=== PATIENT | male | born 1975 | race African-American/Black ===

== ENCOUNTER 2016-08-01 18:58 | Emergency (ER) | payer SELFPAY ==
[~2016-08-01] VITALS: Ht 175.3 cm; Wt 77.3 kg
[~2016-08-01 18:58] MED LIST: NO MEDS
[2016-08-01] MEDS ORDERED: IBUPROFEN 800 MG TABLET PO ONE (19:15)
[2016-08-01 20:43] VITALS: BP 122/78
== END 2016-08-01 20:47 | disposition home or self-care (01) ==
LOC: EMS 19:01
DX: S43.101A Unspecified dislocation of right acromioclavicular joint, initial encounter (principal); F17.210 Nicotine dependence, cigarettes, uncomplicated; V00.131A Fall from skateboard, initial encounter; Y93.89 Activity, other specified; Y92.89 Other specified places as the place of occurrence of the external cause; Y99.8 Other external cause status
CPT/HCPCS: 29105; 99284

== ENCOUNTER 2016-09-19 11:30 | Inpatient (IN) | payer MEDICAID ==
[~2016-09-19] VITALS: Ht 180.3 cm; Wt 84.4 kg
[2016-09-19] MEDS ORDERED: SODIUM CHLORIDE 0.9% 1,000 ML IV ONE ×2 (12:15→13:15)
[2016-09-19] MEDS ORDERED: MORPHINE SULFATE 4 MG/ML SYRINGE IVP ONE (12:15)
[2016-09-19] MEDS ORDERED: ONDANSETRON HCL 4 MG/2 ML VIAL IVP ONE (12:15)
[2016-09-19] MEDS ORDERED: ACETAMINOPHEN 500 MG TABLET PO ONE (12:15)
[2016-09-19 12:27] LABS: BASOPHILS % (AUTO) 0.2 % (0.0-2.0); EOSINOPHILS % (AUTO) 0 % (1.0-6.0); HEMATOCRIT 43.8 % (41-53); HEMOGLOBIN 14.9 g/dL (13.5-17.5); LYMPHOCYTES # (AUTO) 0.6 K/uL (1.0-4.8); LYMPHOCYTES % (AUTO) 3.4 % (22.0-44.0); MEAN CORPUSCULAR HEMOGLOBIN 30.2 pg (26.0-34.0); MEAN CORPUSCULAR HGB CONC 33.9 G/dL (31.0-37.0); MEAN CORPUSCULAR VOLUME 89 fL (80-100); MONOCYTES # (AUTO) 0.9 K/uL (0.1-1.0); MONOCYTES % (AUTO) 5.2 % (2.0-9.0); NEUTROPHILS # (AUTO) 15.4 K/uL (1.8-7.7); PLATELET COUNT (AUTO) 274 K/uL (150-450); RED BLOOD CELL COUNT(AUTO) 4.91 MIL/uL (4.50-5.90); RED CELL DISTRIBUTION WIDTH 14.1 % (11.5-14.5); WHITE BLOOD COUNT (AUTO) 16.9 K/uL (4.5-11.0)
[2016-09-19 12:30] LABS: NEUTROPHILS % (AUTO) 91.2 % (40.0-70.0)
[2016-09-19 12:38] LABS: RBC MORPHOLOGY COMMENT NORMAL RBC MORPH
[2016-09-19 12:59] LABS: ANION GAP 11 mmol/L (8-16); CALCIUM, TOTAL 9.8 mg/dL (8.8-10.5); CARBON DIOXIDE 28 mmol/L (22-29); CHLORIDE 96 mmol/L (98-107); CREATININE 1.32 mg/dL (0.60-1.30); GLOMERULAR FILTR. RATE CALC > 60 mL/min (>60); SODIUM SERUM 135 mmol/L (136-145); UREA NITROGEN, BLOOD 8 mg/dL (7-18)
[2016-09-19 13:04] LABS: ALANINE AMINOTRANSFERASE 219 U/L (12-78); ALBUMIN 3.4 g/dL (3.4-5.0); ASPARTATE AMINOTRANSFERASE 191 U/L (15-37); BILIRUBIN,TOTAL 1.8 mg/dL (0.1-1.0); TOTAL PROTEIN, SERUM 8.4 g/dL (6.4-8.2)
[2016-09-19] MEDS ORDERED: VANCOMYCIN HCL 1.5 GM in DEXTROSE 5%-WATER 250 ML IV ONE ×2 (13:16→22:00)
[2016-09-19] MEDS ORDERED: SODIUM CHLORIDE 0.9% 100 ML ONE (13:19)
[2016-09-19] MEDS ORDERED: IOVERSOL 350 MG/ML 100 ML VIAL ONE (13:19)
[2016-09-19] MEDS ORDERED: KETOROLAC TROMETHAMINE 30 MG/ML VIAL IVP ONE (14:15)
[2016-09-19] MEDS ORDERED: LIDOCAINE HCL 1% 10 ML VIAL INJ ONE (14:30)
[2016-09-19] MEDS ORDERED: HYDROmorphone 2 MG/ML SYRINGE IVP ONE (14:30)
[2016-09-19] MEDS ORDERED: 0.9% SODIUM CHLORIDE 10 ML SYRINGE IVP PRN (14:45)
[2016-09-19] MEDS ORDERED: ACETAMINOPHEN 325 MG TABLET PO PRN (14:45)
[2016-09-19] MEDS ORDERED: ONDANSETRON HCL 4 MG/2 ML VIAL IVP PRN (14:45)
[2016-09-19 15:36] VITALS: BP 123/68
[2016-09-19] MEDS ORDERED: SODIUM CHLORIDE 0.9% 250 ML IV ONE (15:40)
[2016-09-19] MEDS: PIPERACILLIN/TAZO 3.375 GM/D5W 50 ML IV SCH (16:49)
[2016-09-19 18:34] VITALS: BP 123/68
[2016-09-19 20:02] VITALS: BP 111/67
[2016-09-19 23:48] VITALS: BP 125/74
[2016-09-20] MEDS: PIPERACILLIN/TAZO 3.375 GM/D5W 50 ML IV SCH (00:29)
[2016-09-20 04:45] VITALS: BP 138/78
[2016-09-20] MEDS ORDERED: ACETAMINOPHEN 325 MG TABLET PO PRN ×2 (05:00→14:45)
[2016-09-20 07:15] VITALS: BP 117/68
[2016-09-20] MEDS ORDERED: PIPERACILLIN/TAZO 3.375 GM/D5W 50 ML IV ONE (08:00)
[2016-09-20 11:50] VITALS: BP 109/64
[2016-09-20] MEDS ORDERED: ONDANSETRON HCL 4 MG/2 ML VIAL IVP PRN (14:45)
[2016-09-20] MEDS ORDERED: MAGNESIUM HYDROXIDE SUSPENSION 30 ML UDCUP PO PRN (14:45)
[2016-09-20] MEDS ORDERED: ZOLPIDEM TARTRATE 5 MG TABLET PO PRN (14:45)
[2016-09-20] MEDS ORDERED: MORPHINE SULFATE 2 MG/ML SYRINGE IVP PRN (14:45)
[2016-09-20] MEDS ORDERED: HYDROCODONE/ACETAMINOPHEN 5-325 MG TABLET PO PRN (14:45)
[2016-09-20] MEDS ORDERED: BISACODYL 10 MG RECTAL RECTAL SUPPOSITORY PR PRN (14:45)
[2016-09-20] MEDS ORDERED: ALBUTEROL SULFATE 2.5 MG/0.5 ML NEB SOLUTION NEB PRN (14:45)
[2016-09-20] MEDS ORDERED: IPRATROPIUM BROMIDE 0.5 MG/2.5 ML NEB SOLUTION NEB PRN (14:45)
[2016-09-20 15:16] VITALS: BP 111/71
[2016-09-20] MEDS: HEPARIN SODIUM,PORCINE 5,000 UNITS/ML VIAL SQ SCH ×2 (15:36→23:33)
[2016-09-20 15:46] LABS: HEMATOCRIT 39.9 % (41-53); HEMOGLOBIN 13.2 g/dL (13.5-17.5); MEAN CORPUSCULAR HEMOGLOBIN 29.8 pg (26.0-34.0); MEAN CORPUSCULAR HGB CONC 33.1 G/dL (31.0-37.0); MEAN CORPUSCULAR VOLUME 90 fL (80-100); PLATELET COUNT (AUTO) 265 K/uL (150-450); RED BLOOD CELL COUNT(AUTO) 4.44 MIL/uL (4.50-5.90); RED CELL DISTRIBUTION WIDTH 14.2 % (11.5-14.5); WHITE BLOOD COUNT (AUTO) 16.3 K/uL (4.5-11.0)
[2016-09-20] MEDS ORDERED: VANCOMYCIN HCL 1.5 GM in DEXTROSE 5%-WATER 250 ML IV ONE (16:00)
[2016-09-20 16:15] LABS: BAND NEUTROPHILS % (MANUAL) 23 % (1-5); LYMPHOCYTES % (MANUAL) 5 % (22-44); TOTAL CELLS COUNTED 100
[2016-09-20 17:07] LABS: ANION GAP 7 mmol/L (8-16); CARBON DIOXIDE 30 mmol/L (22-29); CHLORIDE 102 mmol/L (98-107); CREATININE 1.28 mg/dL (0.60-1.30); GLOMERULAR FILTR. RATE CALC > 60 mL/min (>60); SODIUM SERUM 139 mmol/L (136-145); UREA NITROGEN, BLOOD 8 mg/dL (7-18)
[2016-09-20 17:13] LABS: ALANINE AMINOTRANSFERASE 111 U/L (12-78); ALBUMIN 2.7 g/dL (3.4-5.0); ASPARTATE AMINOTRANSFERASE 32 U/L (15-37); TOTAL PROTEIN, SERUM 7.4 g/dL (6.4-8.2)
[2016-09-20 19:26] VITALS: BP 129/77
[2016-09-20] MEDS: DOCUSATE SODIUM 100 MG CAPSULE PO SCH (20:19)
[2016-09-20 23:37] VITALS: BP 110/72
[2016-09-21 04:48] VITALS: BP 115/79
[2016-09-21 06:15] LABS: BASOPHILS % (AUTO) 0.1 % (0.0-2.0); EOSINOPHILS % (AUTO) 0.5 % (1.0-6.0); HEMOGLOBIN 13.1 g/dL (13.5-17.5); LYMPHOCYTES # (AUTO) 1.2 K/uL (1.0-4.8); LYMPHOCYTES % (AUTO) 7.8 % (22.0-44.0); MEAN CORPUSCULAR HEMOGLOBIN 30.1 pg (26.0-34.0); MEAN CORPUSCULAR HGB CONC 33.5 G/dL (31.0-37.0); MEAN CORPUSCULAR VOLUME 90 fL (80-100); MONOCYTES % (AUTO) 6.8 % (2.0-9.0); NEUTROPHILS # (AUTO) 12.7 K/uL (1.8-7.7); NEUTROPHILS % (AUTO) 84.8 % (40.0-70.0); PLATELET COUNT (AUTO) 285 K/uL (150-450); RED BLOOD CELL COUNT(AUTO) 4.34 MIL/uL (4.50-5.90); RED CELL DISTRIBUTION WIDTH 14.2 % (11.5-14.5); WHITE BLOOD COUNT (AUTO) 14.9 K/uL (4.5-11.0)
[2016-09-21 06:37] LABS: ALANINE AMINOTRANSFERASE 94 U/L (12-78); ALBUMIN 2.5 g/dL (3.4-5.0); ANION GAP 9 mmol/L (8-16); BILIRUBIN,TOTAL 0.7 mg/dL (0.1-1.0); CALCIUM, TOTAL 9.2 mg/dL (8.8-10.5); CARBON DIOXIDE 26 mmol/L (22-29); CHLORIDE 102 mmol/L (98-107); CREATININE 1.17 mg/dL (0.60-1.30); GLOMERULAR FILTR. RATE CALC > 60 mL/min (>60); POTASSIUM 3.7 mmol/L (3.5-5.1); SODIUM SERUM 137 mmol/L (136-145); TOTAL PROTEIN, SERUM 7.3 g/dL (6.4-8.2); UREA NITROGEN, BLOOD 8 mg/dL (7-18)
[2016-09-21 06:53] LABS: ASPARTATE AMINOTRANSFERASE 34 U/L (15-37)
[2016-09-21 07:20] VITALS: BP 115/75
[2016-09-21] MEDS: DOCUSATE SODIUM 100 MG CAPSULE PO SCH (08:00)
[2016-09-21] MEDS ORDERED: VANCOMYCIN HCL 1 GM/D5% WATER 200 ML IV SCH (08:00)
[2016-09-21] MEDS: HEPARIN SODIUM,PORCINE 5,000 UNITS/ML VIAL SQ SCH (08:00)
[2016-09-21] MEDS ORDERED: PANTOPRAZOLE SODIUM 40 MG/VIAL IVP SCH (09:00)
[2016-09-21 11:50] VITALS: BP 126/73
[2016-09-21 16:30] LABS: HEPATITIS Bs ANTIGEN SCREEN P Negative (Negative); HEPATITIS C AB SCREEN 0.1 s/co ratio (0.0-0.9)
== END 2016-09-21 15:40 | disposition left against medical advice (07) | DRG 383 ==
LOC: EMS 11:33 → 5N 15:24 → 6N 09-20 15:50
PROVIDERS: ADMIT Hospitalist; ATTEND Hospitalist
PROC: 0X953ZZ Drainage of Left Axilla, Percutaneous Approach (ICD-10-PCS; principal; 2016-09-19)
DX: L03.112 Cellulitis of left axilla (principal); I10 Essential (primary) hypertension; F20.9 Schizophrenia, unspecified; F31.9 Bipolar disorder, unspecified; L02.412 Cutaneous abscess of left axilla; F15.129 Other stimulant abuse with intoxication, unspecified; F17.210 Nicotine dependence, cigarettes, uncomplicated; F32.9 Major depressive disorder, single episode, unspecified
CPT/HCPCS: 71260; 80074; 83605; 87040; 87070; 87147; 87205; 96361; 96365; 96366; 96375; 99285; C9113; J1170; J1644; J1885; J2270; J2405; J2543; J3370; J3490; J7030; J7050; J7060

== ENCOUNTER 2016-12-17 21:17 | Emergency (ER) | payer SELFPAY ==
[~2016-12-17] VITALS: Ht 177.8 cm; Wt 86.0 kg
[2016-12-17] MEDS ORDERED: HYDROmorphone 2 MG/ML SYRINGE IVP ONE (23:00)
[2016-12-17] MEDS ORDERED: LIDOCAINE HCL 1% 10 ML VIAL INJ ONE (23:00)
[2016-12-17] MEDS ORDERED: CefTRIAXone 1 GM/DEXTROSE 50 ML IV ONE (23:00)
[2016-12-17] MEDS ORDERED: ONDANSETRON HCL 4 MG/2 ML VIAL IVP ONE (23:00)
[2016-12-17 23:18] LABS: BASOPHILS % (AUTO) 0.2 % (0.0-2.0); EOSINOPHILS % (AUTO) 0.8 % (1.0-6.0); HEMATOCRIT 43.9 % (41-53); HEMOGLOBIN 14.6 g/dL (13.5-17.5); LYMPHOCYTES % (AUTO) 11.3 % (22.0-44.0); MEAN CORPUSCULAR HGB CONC 33.3 G/dL (31.0-37.0); MEAN CORPUSCULAR VOLUME 90 fL (80-100); MONOCYTES # (AUTO) 0.3 K/uL (0.1-1.0); MONOCYTES % (AUTO) 3.9 % (2.0-9.0); NEUTROPHILS # (AUTO) 7.2 K/uL (1.8-7.7); NEUTROPHILS % (AUTO) 83.8 % (40.0-70.0); PLATELET COUNT (AUTO) 234 K/uL (150-450); RED BLOOD CELL COUNT(AUTO) 4.87 MIL/uL (4.50-5.90); RED CELL DISTRIBUTION WIDTH 14.8 % (11.5-14.5); WHITE BLOOD COUNT (AUTO) 8.7 K/uL (4.5-11.0)
[2016-12-17 23:21] LABS: ANION GAP 9 mmol/L (8-16); CALCIUM, TOTAL 8.9 mg/dL (8.8-10.5); CARBON DIOXIDE 27 mmol/L (22-29); CHLORIDE 101 mmol/L (98-107); GLOMERULAR FILTR. RATE CALC > 60 mL/min (>60); POTASSIUM 3.2 mmol/L (3.5-5.1); SODIUM SERUM 137 mmol/L (136-145); UREA NITROGEN, BLOOD 12 mg/dL (7-18)
[2016-12-18 00:16] VITALS: BP 124/77
== END 2016-12-18 00:28 | disposition home or self-care (01) ==
LOC: EMS 21:19
DX: L02.01 Cutaneous abscess of face (principal); L73.9 Follicular disorder, unspecified; I10 Essential (primary) hypertension; F17.210 Nicotine dependence, cigarettes, uncomplicated
CPT/HCPCS: 10160; 36415; 80048; 85025; 96365; 96374; 99284; J0696; J2405; J3490; J1170

== ENCOUNTER 2017-05-31 04:05 | Emergency (ER) | payer SELFPAY ==
[~2017-05-31] VITALS: Ht 175.3 cm; Wt 77.3 kg
[2017-05-31] MEDS ORDERED: CEFTAROLINE 600 MG/D5W 250 ML IV ONE (05:15)
[2017-05-31] MEDS ORDERED: LIDOCAINE HCL 2%/EPI 1:200,000/PF 20 ML VIAL INJ ONE (05:15)
[2017-05-31] MEDS ORDERED: KETOROLAC TROMETHAMINE 30 MG/ML VIAL IVP ONE (05:15)
[2017-05-31 05:37] LABS: BASOPHILS % (AUTO) 0.9 % (0.0-2.0); EOSINOPHILS % (AUTO) 0.4 % (1.0-6.0); HEMATOCRIT 42.6 % (41-53); HEMOGLOBIN 14.5 g/dL (13.5-17.5); LYMPHOCYTES # (AUTO) 0.9 K/uL (1.0-4.8); MEAN CORPUSCULAR HEMOGLOBIN 30.4 pg (26.0-34.0); MEAN CORPUSCULAR VOLUME 89 fL (80-100); MONOCYTES # (AUTO) 0.6 K/uL (0.1-1.0); MONOCYTES % (AUTO) 6.5 % (2.0-9.0); NEUTROPHILS # (AUTO) 7.4 K/uL (1.8-7.7); NEUTROPHILS % (AUTO) 82.2 % (40.0-70.0); PLATELET COUNT (AUTO) 268 K/uL (150-450); RED BLOOD CELL COUNT(AUTO) 4.77 MIL/uL (4.50-5.90); RED CELL DISTRIBUTION WIDTH 13.8 % (11.5-14.5)
[2017-05-31] MEDS ORDERED: BUPIVACAINE HCL/PF 0.25% 10 ML VIAL INJ ONE (06:45)
[2017-05-31] MEDS ORDERED: ONDANSETRON HCL 4 MG/2 ML VIAL IVP ONE (07:15)
[2017-05-31 07:31] VITALS: BP 140/88
== END 2017-05-31 07:41 | disposition home or self-care (01) ==
LOC: EMS 04:06
DX: L73.2 Hidradenitis suppurativa (principal); L03.112 Cellulitis of left axilla; I10 Essential (primary) hypertension; F17.210 Nicotine dependence, cigarettes, uncomplicated
CPT/HCPCS: 10060; 36415; 85025; 96361; 96374; 96375; 99284; 99406; J0712; J1885; J2405; J3490; X6474

== ENCOUNTER 2017-06-02 02:43 | Emergency (ER) | payer SELFPAY ==
[~2017-06-02] VITALS: Ht 175.3 cm; Wt 77.0 kg
[2017-06-02] MEDS ORDERED: DOXY100C PO (02:48)
[2017-06-02] MEDS ORDERED: CEPH500 PO (02:48)
[2017-06-02 06:11] VITALS: BP 133/85
[2017-06-02] MEDS ORDERED: HYDROCODONE/ACETAMINOPHEN 5-325 MG TABLET PO ONE (06:30)
== END 2017-06-02 06:33 | disposition home or self-care (01) ==
LOC: EMS 02:44
DX: L02.412 Cutaneous abscess of left axilla (principal); I10 Essential (primary) hypertension; F17.210 Nicotine dependence, cigarettes, uncomplicated; Z48.00 Encounter for change or removal of nonsurgical wound dressing
CPT/HCPCS: 99283; 99406

== ENCOUNTER 2018-11-09 23:52 | Emergency (ER) | payer MEDICAID ==
[~2018-11-09] VITALS: Ht 175.3 cm; Wt 85.0 kg
[~2018-11-09 23:52] MED LIST changes: +CEPH500 PO; +DOXY100C PO; -NO MEDS
[2018-11-10] MEDS ORDERED: VANCOMYCIN HCL 1 GM/D5% WATER 200 ML IV ONE (02:30)
[2018-11-10 03:03] LABS: BASOPHILS % (AUTO) 0.6 % (0.0-2.0); EOSINOPHILS % (AUTO) 0.8 % (1.0-6.0); HEMATOCRIT 46.1 % (41-53); HEMOGLOBIN 14.9 g/dL (13.5-17.5); LYMPHOCYTES # (AUTO) 0.9 K/uL (1.0-4.8); LYMPHOCYTES % (AUTO) 9.7 % (22.0-44.0); MEAN CORPUSCULAR HEMOGLOBIN 29.9 pg (26.0-34.0); MEAN CORPUSCULAR HGB CONC 32.3 G/dL (31.0-37.0); MEAN CORPUSCULAR VOLUME 93 fL (80-100); MONOCYTES # (AUTO) 0.7 K/uL (0.1-1.0); NEUTROPHILS # (AUTO) 7.3 K/uL (1.8-7.7); NEUTROPHILS % (AUTO) 80.9 % (40.0-70.0); PLATELET COUNT (AUTO) 275 K/uL (150-450); RED BLOOD CELL COUNT(AUTO) 4.98 MIL/uL (4.50-5.90); RED CELL DISTRIBUTION WIDTH 13.9 % (11.5-14.5)
[2018-11-10 03:11] LABS: ANION GAP 13 mmol/L (8-16); CALCIUM, TOTAL 9.5 mg/dL (8.8-10.5); CARBON DIOXIDE 26 mmol/L (22-29); CHLORIDE 100 mmol/L (98-107); CREATININE 1.05 mg/dL (0.60-1.30); GLOMERULAR FILTR. RATE CALC > 60 mL/min (>60); GLUCOSE,RANDOM 104 mg/dL (70-110); POTASSIUM 3.6 mmol/L (3.5-5.1); SODIUM SERUM 139 mmol/L (136-145); UREA NITROGEN, BLOOD 8 mg/dL (7-18)
[2018-11-10] MEDS ORDERED: KETOROLAC TROMETHAMINE 30 MG/ML VIAL IVP ONE (03:15)
[2018-11-10] MEDS ORDERED: BUPIVACAINE HCL/PF 0.25% 10 ML VIAL INJ ONE (03:15)
[2018-11-10 03:16] LABS: ALANINE AMINOTRANSFERASE 15 U/L (12-78); ALBUMIN 3.7 g/dL (3.4-5.0); ALKALINE PHOSPHATASE 77 U/L (46-116); ASPARTATE AMINOTRANSFERASE 13 U/L (15-37); BILIRUBIN,TOTAL 1.4 mg/dL (0.1-1.0)
[2018-11-10 03:19] LABS: LACTIC ACID 0.9 mmol/L (0.4-2.0)
[2018-11-10 05:00] VITALS: BP 128/74
== END 2018-11-10 05:20 | disposition home or self-care (01) ==
LOC: EMS 23:54
DX: L03.221 Cellulitis of neck (principal); L02.11 Cutaneous abscess of neck; I10 Essential (primary) hypertension; F31.9 Bipolar disorder, unspecified; F20.9 Schizophrenia, unspecified; F17.210 Nicotine dependence, cigarettes, uncomplicated
CPT/HCPCS: 10060; 36415; 80053; 83605; 85025; 87040; 96365; 96366; 96375; 99283; 99406; J1885; J3370; J3490

== ENCOUNTER 2021-09-19 08:42 | Emergency (ER) | payer MEDICAID, OTHER ==
[~2021-09-19] VITALS: Ht 175.3 cm; Wt 81.8 kg
[2021-09-19] MEDS ORDERED: CLINDAMYCIN 600 MG/D5% WATER 50 ML IV ONE (09:15)
[2021-09-19 09:42] LABS: BASOPHILS % (AUTO) 0.9 % (0.0-2.0); EOSINOPHILS % (AUTO) 0.4 % (1.0-6.0); HEMATOCRIT 41.9 % (41-53); HEMOGLOBIN 14.1 g/dL (13.5-17.5); LYMPHOCYTES # (AUTO) 0.8 K/uL (1.0-4.8); MEAN CORPUSCULAR HGB CONC 33.7 G/dL (31.0-37.0); MEAN CORPUSCULAR VOLUME 89 fL (80-100); MONOCYTES # (AUTO) 0.7 K/uL (0.1-1.0); MONOCYTES % (AUTO) 7.5 % (2.0-9.0); NEUTROPHILS # (AUTO) 8.2 K/uL (1.8-7.7); NEUTROPHILS % (AUTO) 83.2 % (40.0-70.0); PLATELET COUNT (AUTO) 224 K/uL (150-450); RED CELL DISTRIBUTION WIDTH 14.1 % (11.5-14.5)
[2021-09-19 09:50] LABS: ANION GAP 5 mmol/L (8-16); CALCIUM, TOTAL 8.8 mg/dL (8.8-10.5); CARBON DIOXIDE 25 mmol/L (22-29); CHLORIDE 104 mmol/L (98-107); CREATININE 1.03 mg/dL (0.60-1.30); GLUCOSE,RANDOM 102 mg/dL (70-110); POTASSIUM 3.7 mmol/L (3.5-5.1); SODIUM SERUM 134 mmol/L (136-145); UREA NITROGEN, BLOOD 9 mg/dL (7-18)
[2021-09-19 09:55] LABS: ALANINE AMINOTRANSFERASE 27 U/L (12-78); ALBUMIN 3.5 g/dL (3.4-5.0); ALKALINE PHOSPHATASE 90 U/L (46-116); ASPARTATE AMINOTRANSFERASE 23 U/L (15-37); BILIRUBIN,TOTAL 0.8 mg/dL (0.1-1.0); TOTAL PROTEIN, SERUM 7.4 g/dL (6.4-8.2)
[2021-09-19 09:57] LABS: GLOMERULAR FILTR. RATE CALC > 60 mL/min (>60)
[2021-09-19] MEDS ORDERED: CLIN-142 PO (09:58)
[2021-09-19 11:02] VITALS: BP 130/81
== END 2021-09-19 11:06 | disposition home or self-care (01) ==
LOC: EMS 08:53
DX: L03.114 Cellulitis of left upper limb (principal); I10 Essential (primary) hypertension; F31.9 Bipolar disorder, unspecified; F20.9 Schizophrenia, unspecified; F17.210 Nicotine dependence, cigarettes, uncomplicated
CPT/HCPCS: 99284; 96365; 80053; 85025; 36415; J3490

== ENCOUNTER 2024-06-12 13:07 | Emergency (ER) | payer OTHER ==
[~2024-06-12] VITALS: Ht 180.3 cm; Wt 83.0 kg
[~2024-06-12 13:07] MED LIST changes: -CEPH500 PO; +CLIN-142 PO; -DOXY100C PO
[2024-06-12 13:20] VITALS: BP 129/87; PULSE 97; RESP 16; TEMP 98.3; O2SAT 98
[2024-06-12] MEDS: LIDOCAINE 1% 10 ML VIAL SQ ONE (15:01)
[2024-06-12] MEDS: PERTUSS(ACELL),DIPH,TET/PF 0.5 ML SYRINGE [ADULT] IM. ONE (15:02)
[2024-06-12] MEDS: BACITRACIN 0.9 GM PACKET OINTMENT TP ONE (15:03)
[2024-06-12] MEDS ORDERED: CEPH-558 PO (15:30)
[2024-06-12] MEDS ORDERED: BACI28.410 TP (15:30)
[2024-06-12] MEDS ORDERED: IBUP-1554 PO (15:30)
== END 2024-06-12 15:55 | disposition home or self-care (01) ==
LOC: EMS 13:11
DX: S61.214A Laceration without foreign body of right ring finger without damage to nail, initial encounter (principal); I10 Essential (primary) hypertension; F20.9 Schizophrenia, unspecified; F17.210 Nicotine dependence, cigarettes, uncomplicated; W26.0XXA Contact with knife, initial encounter; Y93.89 Activity, other specified; Y92.009 Unspecified place in unspecified non-institutional (private) residence as the place of occurrence of the external cause; Y99.8 Other external cause status
CPT/HCPCS: 99283; 90715; 90471; 12002; J3490